=== PATIENT | male | born 1960 | race Caucasian/White ===

== ENCOUNTER 2017-06-19 06:07 | Day surgery (SDC) | payer OTHER ==
[2017-06-11 13:55] VITALS: BMI 35.9
[2017-06-19] MEDS ORDERED: MIDAZOLAM HCL 2 MG/2 ML SINGLE DOSE VIAL ONE (06:43)
[2017-06-19] MEDS ORDERED: ROPIVACAINE HCL 0.5% 30ML VIAL ONE (06:43)
[2017-06-19] MEDS ORDERED: DEXAMETHASONE SOD PHOSPHATE/PF 10 MG/ML SDV ONE (06:43)
[2017-06-19] MEDS ORDERED: EPINEPHrine 1:1,000 1 MG/1 ML - 30ML VIAL (INJECTION) ONE (07:23)
[2017-06-19] MEDS ORDERED: LIDOCAINE HCL/PF 2% SDV 5ML VIAL ONE (07:31)
[2017-06-19] MEDS ORDERED: ONDANSETRON 4 MG/2 ML VIAL ONE (07:31)
[2017-06-19] MEDS ORDERED: DEXAMETHASONE SOD PHOSPHATE 4 MG/1 ML VIAL ONE (07:31)
[2017-06-19] MEDS ORDERED: PROPOFOL 20 ML ONE ×2 (07:31)
[2017-06-19] MEDS ORDERED: PHENYLEPHRINE HCL 10 MG/1 ML SINGLE DOSE VIAL ONE (07:31)
[2017-06-19] MEDS ORDERED: ePHEDrine SULFATE 50 MG/1 ML AMPULE ONE (07:31)
[2017-06-19] MEDS ORDERED: ceFAZolin SODIUM 1 GM VIAL ONE (07:32)
[2017-06-19] MEDS ORDERED: SUCCINYLCHOLINE CHLORIDE 200 MG/10 ML VIAL ONE (07:32)
--- NOTE | 2017-06-19 07:32 | OP ---
Operative Note - Note: Operative Date: 06/19/17 Pre-Operative Diagnosis: l sh tear Operation: scope l sh Findings: tear Implants: anchors Surgeon: Randall Sharma V Anesthesia: General Specimens Removed: shavings Operative Report Dictated: Yes
--- NOTE | 2017-06-19 07:37 | HP ---
History & Physical Update - History History: No Change - Physical Physical: No Change - Assessment Assessment: No Change - Plan Plan: No Change
[2017-06-19 11:11] VITALS: TEMP 97.6
--- NOTE | 2017-06-19 11:48 | SURG ---
Surgery Control Clerk Subassembly Note Control Clerk Subassembly: Kandace Brar PA-C Date of Service: 06/19/17 Diagnosis: left shoulder rotator cuff repair Procedure: left shoulder arthroscopy, rotator cuff repair, labrectomy, subacrominal decompression I was present for the entirety of the operative procedure. For further detail, please refer to operative report. Visit type - Case Type Case Type: Scheduled Admission - Emergency Emergency Visit: No - New patient This patient is new to me today: Yes Date on this admission: 06/19/17 - Critical Care Critical Care patient: No
[2017-06-19 12:18] VITALS: BP 122/72; PULSE 79
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
--- NOTE | 2017-06-23 16:59 | PATH ---
Surgical Pathology Report Patient Name: BRYAN MON [facility]. Rec. #: [id number] /Age/Gender: 1960 (Age: 56) / M Account: [id number] Location: [facility] Taken: 06/19/2017 Received: 06/19/2017 Reported: 06/23/2017 Physicians: Randall Sharma M.D. Specimen(s) Received LEFT SHOULDER SHAVINGS Clinical History Left rotator cuff tear Final Diagnosis SHOULDER, LEFT, ARTHROSCOPIC SHAVINGS: FIBROSYNOVIAL TISSUE, CARTILAGE, SKELETAL MUSCLE AND BONE. Electronically Signed Mony Brown M.D. Gross Description Received in formalin, labeled "left shoulder arthroscopy shavings," is a 4.0 x 3.3 x 0.4 cm. aggregate of mayorga-yellow soft tissue fragments. A event representative portion is submitted in one cassette. 06/19/201706/19/2017
== END 2017-06-19 12:00 | disposition home or self-care (01) ==
LOC: FASU 06:07
PROVIDERS: ATTEND Orthopaedic Surgery
PROC: 0LS24ZZ Reposition Left Shoulder Tendon, Percutaneous Endoscopic Approach (ICD-10-PCS; 2017-06-19)
PROC: 0RNK4ZZ Release Left Shoulder Joint, Percutaneous Endoscopic Approach (ICD-10-PCS; 2017-06-19)
PROC: 0PBB4ZZ Excision of Left Clavicle, Percutaneous Endoscopic Approach (ICD-10-PCS; 2017-06-19)
PROC: 0RQK4ZZ Repair Left Shoulder Joint, Percutaneous Endoscopic Approach (ICD-10-PCS; 2017-06-19)
PROC: 0LB24ZZ Excision of Left Shoulder Tendon, Percutaneous Endoscopic Approach (ICD-10-PCS; principal; 2017-06-19 08:00)
DX: M75.121 Complete rotator cuff tear or rupture of right shoulder, not specified as traumatic (principal); M66.812 Spontaneous rupture of other tendons, left shoulder; M24.112 Other articular cartilage disorders, left shoulder; M75.42 Impingement syndrome of left shoulder; M19.012 Primary osteoarthritis, left shoulder
CPT/HCPCS: 88304-TC